=== PATIENT | female | born 1990 | race Caucasian/White ===

== ENCOUNTER → 2022-05-10 17:10 | Outpatient (CLI) | payer BC, SELFPAY ==
--- NOTE | 2022-05-10 | DI.MRI.S_ITS ---
PROCEDURE: MR ANKLE RT WO CON INDICATIONS: Pain in right ankle and joints of right foot TECHNIQUE: Noncontrast sagittal T1 spin echo and T2 fast spin echo with fat saturation, axial proton density fast spin echo and T2 fast spin echo with fat saturation, coronal T1 spin echo and T2 fast spin echo with fat saturation through the ankle/hindfoot. COMPARISON: [facility] [place], CR, XR ANKLE 3+ VIEWS RIGHT, 05/08/2022, 15:17. FINDINGS: Image quality: Excellent. Bones and joints: No bone marrow contusions or fractures. No hindfoot coalitions. No osteochondral injuries of the talar dome. Moderate mortise joint effusion. Medial structures: The deep and superficial layers of the deltoid ligament appear intact. The spring ligament components are intact. The posterior tibialis, flexor digitorum longus, and flexor hallucis longus tendons are intact. The posterior tibial neurovascular bundle appears normal within the tarsal tunnel, without extrinsic mass effect. Lateral structures: There is mildly increased signal within the anterior talofibular ligament and the calcaneofibular ligament, consistent with low-grade sprains. The posterior talofibular ligament is grossly intact. The anterior and posterior tibiofibular ligaments appear intact. There is longitudinal split tearing of the peroneus brevis tendon at the level of the distal fibula with tendon reconstitution proximal to the calcaneocuboid joint. Superimposed peroneus brevis and longus tenosynovitis is noted. The sinus tarsi demonstrates normal fatty signal. Anterior structures: The tibialis anterior, extensor hallucis longus, and extensor digitorum longus tendons appear intact. The dorsal talonavicular ligament appears intact. Posterior and plantar structures: Achilles tendon is intact. The proximal plantar fascia is mildly thickened without surrounding edema. No abductor digiti quinti muscle atrophy to suggest Castellano neuropathy. IMPRESSION: 1. Longitudinal split tearing of the peroneus brevis tendon at the level of the distal fibula with distal tendon reconstitution proximal to the calcaneocuboid joint. Mild peroneus brevis and longus tenosynovitis. 2. Chronic low-grade sprains of the anterior talofibular ligament and calcaneofibular ligament. 3. Mild chronic proximal plantar fasciitis. 4. Moderate mortise joint effusion is present, which is nonspecific. Dictated by: Darryl Gracia M.D. on 05/13/2022 at 13:49 Approved by: Darryl Gracia M.D. on 05/13/2022 at 13:58
== END ==
PROVIDERS: Referring Provider Physician Assistant; Visit Provider Physician Assistant
DX: S93.491A Sprain of other ligament of right ankle, initial encounter (principal); S93.411A Sprain of calcaneofibular ligament of right ankle, initial encounter; M72.2 Plantar fascial fibromatosis; M25.571 Pain in right ankle and joints of right foot; M25.471 Effusion, right ankle; S96.811A Strain of other specified muscles and tendons at ankle and foot level, right foot, initial encounter; M65.871 Other synovitis and tenosynovitis, right ankle and foot
CPT/HCPCS: 73721